=== PATIENT | female | born 1975 | race Caucasian/White ===

== ENCOUNTER 2016-11-20 20:00 | Emergency (ER) | payer OTHER | END 2016-11-20 22:52 | disposition left against medical advice (07) | LOC: ER 20:00 | DX: Z53.21 Procedure and treatment not carried out due to patient leaving prior to being seen by health care provider (principal) | CPT/HCPCS: 36415; 80053; 83690; 84703; 85025 ==

== ENCOUNTER 2016-11-23 12:50 | Emergency (ER) | payer OTHER ==
[2016-11-23] MEDS ORDERED: OPTIRAY 350 100 ML VIAL HMH IV ONE (12:51)
[2016-11-23] MEDS ORDERED: KETOROLAC 30 MG/ML VIAL ONE (16:20)
[2016-11-23] MEDS ORDERED: ONDANSETRON 4 MG VIAL ONE (16:20)
== END 2016-11-23 19:19 | disposition home or self-care (01) ==
LOC: ER 12:50
CPT/HCPCS: 36415; 74177; 80053; 81003; 83690; 84703; 85025; 96374; 96375